=== PATIENT | female | born 1965 | race Asian ===

== ENCOUNTER → 2020-04-25 09:56 | Outpatient (BNVA) | payer OTHER, SELFPAY | PROVIDERS: Visit Provider Internal Medicine | DX: Z76.89 Persons encountering health services in other specified circumstances (principal) ==

== ENCOUNTER → 2020-06-14 07:22 | Outpatient (BNVA) | payer OTHER, SELFPAY | PROVIDERS: PCP Internal Medicine; Visit Provider Internal Medicine ==

== ENCOUNTER 2020-07-10 09:49 | Outpatient (REF) | payer OTHER, SELFPAY ==
--- NOTE | ~2020-07-10 | XR_ITS ---
EXAMINATION: XR CHEST CLINICAL INFORMATION: Cough. COMPARISON: None TECHNIQUE: 2 views of the chest were obtained. FINDINGS: Normal heart size. Stable appearance of the mediastinum, alee and pulmonary vasculature. No focal consolidation. No effusion, edema or pneumothorax. XR/XR chest 2V IMPRESSION: No evidence of acute pulmonary process.
== END 2020-07-10 09:50 | disposition home or self-care (01) ==
LOC: HO.XRAY 09:49
PROVIDERS: PCP Internal Medicine; Visit Provider Internal Medicine
DX: R05 Cough (principal); R06.00 Dyspnea, unspecified; R78.89 Finding of other specified substances, not normally found in blood
CPT/HCPCS: 71046

== ENCOUNTER → 2020-10-29 07:53 | Outpatient (BNVA) | payer OTHER, SELFPAY | PROVIDERS: PCP Internal Medicine; Visit Provider Internal Medicine ==

== ENCOUNTER → 2020-12-27 08:10 | Outpatient (BNVA) | payer OTHER, SELFPAY | PROVIDERS: PCP Internal Medicine; Visit Provider Nurse Practitioner ==

== ENCOUNTER 2021-04-25 07:32 | Day surgery (SDC) | payer OTHER, SELFPAY ==
--- NOTE | 2021-04-25 08:10 | P.CONAN_ITS ---
HPI - Anesthesia Eval Consult details Narrative: 55 Female for colonoscopy [facility] Active Problems Active Problems: All Active Problems (Updated 12/26/20 @ 13:36 by YOANA Gutierrez) GERD (gastroesophageal reflux disease) (Acute) Serrated adenoma of colon (Acute) Recurrent productive cough (Acute) Allergic rhinitis (Acute) Upper respiratory tract infection (Acute) Vitamin D deficiency (Acute) Oswaldo's disease (Acute) Hyperthyroidism (Acute) Past Medical History Medical History Allergic rhinitis H. pylori infection Oswaldo's disease Hyperthyroidism Vitamin D deficiency Functional capacity: independent ambulation Family History Family History Father No problems noted. Mother No problems noted. Family history of problems with anesthesia: No Surgical History Surgical History History of ear surgery Hx of colonoscopy History of Problems with Anesthesia: No Social History Social History Household Members: Other Alcohol intake: never Patient Tobacco Use Status: Never used Tobacco Use of substances other than those prescribed or required for medical reasons: No Are you DNR?: No Advance Directives: No Advance Directives Information Provided: Yes Meds Allergies Allergy/AdvReac Type Severity Reaction Status Date / Time No Known Allergies Allergy Verified 12/27/20 08:12 Home Medications Medication Instructions Recorded Confirmed Last Taken Type cholecalciferol (vitamin D3) 50 50 mcg PO DAILY 04/25/20 10/29/20 Unknown History mcg (2,000 unit) capsule rjlulbeqvho-xdzdcsmrd-fop C-Mn cap PO 04/25/20 10/29/20 Unknown History capsule (Glucosamine-Chondroitin Complx) cqnlhkpa-rngicys-ihto-lutein tablet tab PO DAILY tab 04/25/20 10/29/20 Unknown History Exam Exam Date and Time: April 25, 2021 0810 Airway Mallampati Class: II TM Dist: >3cm Neck ROM: Full Loose/Missing/Broken Teeth: Yes Heart: rrr Lungs: bl breath sounds Assessment and Plan Final Anesthetic Review Family History of Problems with Anesthesia: No History of Problems with Anesthesia: No NPO: Yes ASA Class: II Final Preanesthetic Review: No Changes in Pt Med Stat and Meds/Allgs Chart Reviewed Patient Risk: Intermediate Procedure Risk: Intermediate Anesthetic Plan Anesthetic Plan: MAC: Disposition: Standard PACU
[2021-04-25 08:12] VITALS: BP 121/70; PULSE 72; RESP 16; TEMP 36.9; O2SAT 98; BMI 20.3
[2021-04-25] MEDS: Lactated Ringers 1,000 ML 80 ML IVCONT (08:22)
--- NOTE | 2021-04-25 08:38 | MHC.SHP ---
Pre-Procedural Eval Section A Date of Service: 04/25/21 Section B Chief Complaint: benign neoplasm of colon Relevant Family History (Specify if Yes): No Relevant Social History: None Present Medications: see Short Stay Collaborative assessment Medical History: Significant History (Allergic rhinitis H. pylori infection Oswaldo's disease Hyperthyroidism Vitamin D deficiency) History of Previous Operations: Relevant previous surgery/procedure and date(s) (ear surgery) Allergies: Allergies Allergy/AdvReac Type Severity Reaction Status Date / Time No Known Allergies Allergy Verified 12/27/20 08:12 Review of Systems Sugical H&P ROS: Negative: Constitution, Cardiovascular, Respiratory, Neurological, Psychiatric, Hem-Onc, Allergic/Immunologic, Gastrointestinal, Genitourinary, Musculoskeletal, Integumentary, Endocrine and Eyes/Ears/Nose/Throat Exam Surgical H&P Exam: Normal: HEENT, Normal: Heart, Normal: Lungs, Normal: Extremities, Normal: Abdomen, Normal: Skin and Normal: Neurological Plan Diagnosis/Plan: Unchanged I have reviewed the history and physical and performed a pertinent physical examination on my patient. No changes have occurred unless specified.
--- NOTE | 2021-04-25 08:47 | P.BOP_ITS ---
Brief Operative Note Date of Service: 04/25/21 Pre-op diagnosis: colon screening Post-op diagnosis: same Procedure: see op note Surgeon: Alicia Fernandez MD Anesthesia: MAC Was an Vice President Of Marketing used for this Procedure?: No Estimated blood loss (mL): 0 Condition: stable Disposition: PACU
--- NOTE | 2021-04-25 08:48 | W.PM.OPN ---
Operative Note Operative Note Date of Service: 04/25/21 Narrative: Operative Information Procedure Description: Colonoscopy COLONOSCOPY Instrument: Olympus variable stiffness pediatric scope 190L Colonoscopy Monitoring: Vital signs and clinical assessment, continuous EKG monitoring, Pulse oximetry, Carbon Dioxide monitoring and blood pressure monitoring were done throughout the procedure. Colon withdrawal time was 8 minutes. Procedure: The patient was placed in the left lateral decubitis position and pre-procedure medications were administered. After a digital rectal examination of the ano-rectum, the video colonoscope was inserted into the rectum and advanced through the colon to the cecum/TI. The colonoscope was slowly withdrawn in a retrograde panoramic fashion and the colon mucosa was carefully examined including a retroflexed view of the rectum. Findings and interventions are described below. Procedure Difficulty:easy Findings: Terminal Ileum-normal Cecum: 5-6 mm sessile polyp removed with forceps Ascending Colon: normal Transverse Colon -normal Descending Colon:normal Sigmoid Colon: mild diverticulosis with several tics seen Rectum: Retroflexion with small internal hemorrhoids, grade I Anorectum - normal Colon preparation: [place] Bowel Preparation Scale Right colon; 3 Transverse colon: 3 Left colon; 3 (0 = Unprepared colon segment with mucosa not seen due to solid stool that cannot be cleared. 1 = Portion of mucosa of the colon segment seen, but other areas of the colon segment not well seen due to staining, residual stool and/or opaque liquid. 2 = Minor amount of residual staining, small fragments of stool and/or opaque liquid, but mucosa of colon segment seen well. 3 = Entire mucosa of colon segment seen well with no residual staining, small fragments of stool or opaque liquid) Impression and Post Procedure Diagnosis: polyp internal hemorrhoids diverticular disease Plan: High fiber diet leaflet Avoid straining at stool, epsom salts and sitz bath, anusol supps or cream Repeat Colonoscopy in 5 years if adenoma or serrated polyp otherwise 10 yrs or earlier if clinically indicated Above findings were reviewed with the patient and relevant handouts were provided if indicated.
[2021-04-25 09:11] VITALS: BP 80/46; PULSE 68; RESP 14; TEMP 36.7; O2SAT 100
[2021-04-25 09:25] VITALS: BP 83/48; PULSE 61; RESP 14; O2SAT 100
[2021-04-25 09:30] VITALS: BP 92/57
[2021-04-25 09:40] VITALS: BP 117/69; PULSE 74; RESP 16; O2SAT 98
[2021-04-25 09:53] VITALS: TEMP 36.9
== END 2021-04-25 10:22 | disposition home or self-care (01) ==
PROVIDERS: PCP Nurse Practitioner Family; Visit Provider Internal Medicine Gastroenterology
PROC: 0DJD8ZZ Inspection of Lower Intestinal Tract, Via Natural or Artificial Opening Endoscopic (ICD-10-PCS; CPT 45378; principal; 2021-04-25 08:30)
DX: Z12.11 Encounter for screening for malignant neoplasm of colon (principal); Z86.010 Personal history of colon polyps; D12.0 Benign neoplasm of cecum; K57.30 Diverticulosis of large intestine without perforation or abscess without bleeding; K64.0 First degree hemorrhoids; E06.3 Autoimmune thyroiditis; K21.9 Gastro-esophageal reflux disease without esophagitis
CPT/HCPCS: 45380; 88305

== ENCOUNTER 2021-05-01 10:03 | Outpatient (REF) | payer OTHER, SELFPAY ==
[2021-05-01 10:18] LABS: MANUAL DIFF FLAG NO
[2021-05-01 10:26] LABS: Basophils Percent Auto 0.7 % (0-2); Eosinophils Absolute Auto 0.2 X10*3/uL (0.0-0.4); Hematocrit 43.7 % (37.0-47.0); Hemoglobin 13.9 g/dl (12.0-16.0); Lymphocytes Absolute Auto 2.1 X10*3/uL (1.2-4.9); Lymphocytes Percent Auto 51.6 % (20-40); Mean Corpuscular HGB Conc 31.8 g/dl (31.0-35.0); Mean Corpuscular Hemoglobin 28.8 pg (27.0-33.0); Mean Corpuscular Volume 90.5 fL (80.0-98.0); Mean Platelet Volume 8.6 fL (9.4-12.3); Monocytes Absolute Auto 0.3 X10*3/uL (0.1-1.2); Monocytes Percent Auto 7.5 % (2-11); Neutrophils Absolute Auto 1.5 x10*3/uL (2.0-8.3); Neutrophils Percent Auto 36.2 % (45-73); Platelet Count 209 X10*3/uL (160-400); Red Blood Count 4.83 X10*6/uL (4.20-5.50); Red Cell Distribution Width 12.1 % (11.0-16.0)
[2021-05-01 11:03] LABS: Alanine Aminotransferase 27 U/L (0-31); Albumin Level 4.4 g/dL (3.5-5.0); Alkaline Phosphatase 63 U/L (39-117); Anion Gap 12 (12-20); Aspartate Amino Transferase 29 U/L (5-31); Bilirubin Total 0.6 mg/dL (0.0-1.0); Blood Urea Nitrogen 10 mg/dL (9-16); Calcium 9.5 mg/dL (8.4-10.2); Carbon Dioxide 32 mmol/L (22-29); Chloride 102 mmol/L (96-108); Estimated Glomerular Filt Rate > 60; Glucose Random 102 mg/dL (60-115); Potassium 4.7 mmol/L (3.3-5.1); Sodium 141 mmol/L (135-145); Total Protein 7.2 g/dL (6.5-8.0)
[2021-05-01 11:17] LABS: Free T4 (Free Thyroxine) 0.96 ng/dL (0.71-1.85); Vitamin D 25-OH Total 33.6 ng/mL (>30)
== END 2021-05-01 10:04 | disposition home or self-care (01) ==
LOC: HO.LAB 10:03
PROVIDERS: Internal Medicine; Visit Provider Nurse Practitioner
DX: E06.3 Autoimmune thyroiditis (principal); D12.6 Benign neoplasm of colon, unspecified; E55.9 Vitamin D deficiency, unspecified
CPT/HCPCS: 36415; 80053; 82306; 84439; 84443; 85025

== ENCOUNTER → 2021-05-23 08:39 | Outpatient (BNVA) | payer OTHER, SELFPAY | PROVIDERS: PCP Nurse Practitioner Family; Visit Provider Nurse Practitioner | DX: K21.9 Gastro-esophageal reflux disease without esophagitis (principal); D12.6 Benign neoplasm of colon, unspecified | CPT/HCPCS: 99212 ==

== ENCOUNTER → 2022-07-16 10:44 | Outpatient (BNVA) | payer OTHER, SELFPAY | PROVIDERS: PCP Nurse Practitioner Family; Visit Provider Internal Medicine | DX: Z13.89 Encounter for screening for other disorder (principal) ==

== ENCOUNTER 2022-07-30 11:05 | Outpatient (REF) | payer OTHER, SELFPAY ==
[2022-07-30 14:23] LABS: Free T4 (Free Thyroxine) 1.14 ng/dL (0.71-1.85); Thyroid Stimulating Hormone 0.01 uIU/mL (0.32-4.0); Vitamin D 25-OH Total 32.2 ng/mL (>30)
[2022-07-31 18:58] LABS: Triiodothyronine T3 Total 128 ng/dL (76-181)
== END 2022-07-30 11:06 | disposition home or self-care (01) ==
LOC: HO.10HDL 11:05
PROVIDERS: Visit Provider Internal Medicine
DX: E05.90 Thyrotoxicosis, unspecified without thyrotoxic crisis or storm (principal); E55.9 Vitamin D deficiency, unspecified
CPT/HCPCS: 36415; 82306; 84439; 84443; 84480

== ENCOUNTER 2022-08-13 13:00 | Outpatient (REF) | payer OTHER, SELFPAY ==
[2022-08-15 13:04] LABS: Thyroglobulin Antibodies 385 IU/mL (< or = 1); Thyroid Peroxidase Antibodies >900 IU/mL (<9)
[2022-08-19 15:18] LABS: Thyroid Stimulating Immunoglob 361 % baseline (<140)
[2022-08-19 16:33] LABS: Thyrotropin Receptor Antibody 1.43 IU/L (<=2.00)
== END 2022-08-13 13:01 | disposition home or self-care (01) ==
LOC: HO.LAB 13:00
PROVIDERS: PCP Nurse Practitioner Family; Visit Provider Internal Medicine
DX: E05.90 Thyrotoxicosis, unspecified without thyrotoxic crisis or storm (principal); J06.9 Acute upper respiratory infection, unspecified; Z79.899 Other long term (current) drug therapy
CPT/HCPCS: 36415; 83520; 84445; 86376; 86800; 99212

== ENCOUNTER → 2022-11-20 09:12 | Outpatient (REF) | payer MEDICAID, SELFPAY ==
--- NOTE | ~2022-11-20 | NM_ITS ---
EXAMINATION: NM THYROID UPTAKE AND SCAN CLINICAL INFORMATION: Thyrotoxicosis. TSH 0.01. COMPARISON: No previous radionuclide thyroid scan is available for comparison. Thyroid ultrasound dated 05/04/2019 is available for comparison. TECHNIQUE: Following the oral administration of 297 microcuries of I-123 sodium iodide, thyroid uptake was performed and expressed as a percentage of the administrated dose. Gamma scintillation camera images of the thyroid in the anterior and right and left anterior oblique views were obtained using a pinhole collimator following the administration of 10 mCi Tc-99m pertechnetate. FINDINGS: The uptake is 17.8% at 4 hours and 33.5% at 24 hours (Normal radioiodine uptake at 24 hours is 10% to 30%). The radioiodine uptake is mildly elevated. The radiopertechnetate thyroid scintigram demonstrates the thyroid gland to be normal in size, shape, and position. The right lobe is slightly larger than the left. There is homogeneous distribution of activity within the the gland with no focal abnormalities noted. A faint pyramidal lobe in the midline is just barely visualized. The trapping function appears mildly increased diffusely. A single anterior radioiodine image obtained at the time of the 24-hour uptake measurement is similar to the radio pertechnetate image. NM/NM thyroid w uptake IMPRESSION: Mildly elevated radioiodine uptake. Normal thyroid scan. In the clinical setting of hyperthyroidism and suppressed TSH, these findings are most consistent with Graves' disease. No nodules are visualized.
== END ==
LOC: HO.NUCMED 09:12
PROVIDERS: PCP Nurse Practitioner Family; Visit Provider Internal Medicine
DX: E05.90 Thyrotoxicosis, unspecified without thyrotoxic crisis or storm (principal)
CPT/HCPCS: 78014; A9512; A9516

== ENCOUNTER 2022-11-26 14:18 | Outpatient (REF) | payer MEDICAID, SELFPAY ==
[2022-11-26 16:25] LABS: Free T4 (Free Thyroxine) 1.02 ng/dL (0.71-1.85); Thyroid Stimulating Hormone 0.02 uIU/mL (0.32-4.0)
[2022-11-28 17:48] LABS: Triiodothyronine T3 Total 97 ng/dL (76-181)
== END 2022-11-26 14:19 | disposition home or self-care (01) ==
LOC: HO.LAB 14:18
PROVIDERS: PCP Nurse Practitioner Family; Visit Provider Internal Medicine
DX: E05.90 Thyrotoxicosis, unspecified without thyrotoxic crisis or storm (principal)
CPT/HCPCS: 36415; 84439; 84443; 84480

== ENCOUNTER 2022-12-03 09:10 | Outpatient (AMB) | payer MEDICAID, SELFPAY ==
--- NOTE | 2022-12-03 09:10 | MHC.OFFVIS ---
Intake Intake Visit Reasons: hyperthyroidism Intake Note: pt is here for f/u hyperthyroidism Medical Accounting Clerk Required: No Allergies No Known Allergies Allergy (Verified 12/03/22 10:52) Medication List - Last Reconciled 12/03/22 by Valentina Raymond, benzonatate 100 mg PO TID PRN cetirizine 10 mg PO DAILY 30 days cholecalciferol (vitamin D3) 50 mcg PO DAILY diphenhydramine HCl (Banophen) 50 mg PO BEDTIME PRN famotidine 40 mg PO DAILY fluticasone propionate 50 mcg/actuation 2 sprays intranasal DAILY 30 days xajgaapdewu-rtitfqkaq-slu C-Mn (Glucosamine-Chondroitin Complex capsule) caps PO guaifenesin ER 600 mg PO Q12H PRN 30 days loratadine 10 mg PO DAILY PRN 30 days axanpfhr-gqdevyq-jmgm-lutein tabs PO DAILY HPI HPI Comments History of Present Illness Details 57 YO Female with PMHx Hyperthyroidism who is seen in F/U for hyperthyroidism. She was previously followed by a family doctor in [facility], and was diagnosed with hyperthyroidism and started on Methimazole 5 mg PO every other day. She remained on that for 6 years. She reports never having a thyroid uptake and scan, but was placed on Methimazole many years ago at a much higher dose. Her dose was slowly tapered. After our initial visit I asked her to stop the methimazole entirely and her TFTs were repeated 6 weeks later. These remained completely WNL. She also underwent at Thyroid US which revealed no nodules. Labs did show positive TG and TPO antibodies, but TRAB and TSI were negative. She then had labs repeated with TSH again suppressed. TPO, TG and TSI antibodies all were positive. TRAB antibodies negative. She underwent a thyroid uptake and scan which revealed 24 hour uptake mildly increased at 33.5%, and mildly increased trapping. Uptake was homogenous and symmetric. She currently denies any symptoms of hyper or hypothyroidism. Reports feeling well. She denies using biotin. Thyroid US: 05/04/2019 Right Thyroid Lobe: 5.0 x 1.2 x 1.8 cm, volume 5.6 mL. Parenchyma: The gland echotexture is homogeneous. Thyroid vascularity is normal. Left Thyroid Lobe: 4.5 x 1.0 x 1.7 cm, volume 4.0 mL. Parenchyma: The gland echotexture is homogeneous. Thyroid vascularity is normal. Isthmus: 0.1 cm in maximum AP dimension. RIGHT THYROID LOBE: No nodules. ISTHMUS: No nodules. LEFT THYROID LOBE: No nodules. NODES: There is a small right cervical lymph node lateral to the thyroid gland. This is normal in size measuring 0.5 cm in transverse dimension. This demonstrates normal ultrasound morphology and flow. Thyroid Uptake and Scan: 11/21/2022 FINDINGS: The uptake is 17.8% at 4 hours and 33.5% at 24 hours (Normal radioiodine uptake at 24 hours is 10% to 30%). The radioiodine uptake is mildly elevated. The radiopertechnetate thyroid scintigram demonstrates the thyroid gland to be normal in size, shape, and position. The right lobe is slightly larger than the left. There is homogeneous distribution of activity within the the gland with no focal abnormalities noted. A faint pyramidal lobe in the midline is just barely visualized. The trapping function appears mildly increased diffusely. A single anterior radioiodine image obtained at the time of the 24-hour uptake measurement is similar to the radio pertechnetate image. NM/NM thyroid w uptake IMPRESSION: Mildly elevated radioiodine uptake. Normal thyroid scan. In the clinical setting of hyperthyroidism and suppressed TSH, these findings are most consistent with Graves' disease. No nodules are visualized. Labs: Laboratory Tests 08/13/22 11/26/22 11/26/22 13:45 14:39 14:39 TSH 0.02 L Free T4 1.02 Total T3 97 Thyroid Stim Immun oglob 361 H Thyroglobulin Anti body 385 H Thyroid Peroxidase Ab >900 H TSH Receptor Ab 1.43 PFSH Medical History Allergic rhinitis H. pylori infection Oswaldo's disease Hyperthyroidism Vitamin D deficiency Surgical History History of ear surgery Hx of colonoscopy Family History Father No problems noted. Mother No problems noted. Social History Household Members: Other Alcohol intake: never Patient Tobacco Use Status: Never used Tobacco Assessment & Plan Assessment & Plan (1) Hyperthyroidism: Code(s): E05.90 - Thyrotoxicosis, unspecified without thyrotoxic crisis or storm Plan: Patient with recurrent hyperthyroidism. Appears consistent with Grave's disease. She has both blocking and stimulating antibodies. Will resume Methimazole 5 mg PO daily and repeat labs in 2 weeks and again in 6 weeks time. She will then F/U for an in person discussion with an historian research assistant regarding dinfitive treatment with either I131 ablation or a total thyroidectomy as this is indicated at this time. We have reviewed potential ADRs and toxicities of rash, liver failure and agranulocytosis. I advised the patient to immediatley discontinue the medication and call me if a rash appears, symptoms of URI, fever, RUQ pain, Jaundice or darkening of the urine. Patient verbalized understanding. All of her questions were answered. She is in agreement with this plan of care. I spent 20 minutes in reviewing the record, seeing the patient and documenting in the medical record, including 5 minutes on the phone with the Patient. Orders: Orders Triiodothyronine T3 Total 2 Weeks E05.90 - Thyrotoxicosis, unspecified without thyrotoxic crisis or storm Free T4 (Free Thyroxine) 2 Weeks E05.90 - Thyrotoxicosis, unspecified without thyrotoxic crisis or storm Thyroid Stimulating Hormone 6 Weeks E05.90 - Thyrotoxicosis, unspecified without thyrotoxic crisis or storm Triiodothyronine T3 Total 6 Weeks E05.90 - Thyrotoxicosis, unspecified without thyrotoxic crisis or storm Free T4 (Free Thyroxine) 6 Weeks E05.90 - Thyrotoxicosis, unspecified without thyrotoxic crisis or storm Medications: New methimazole 5 mg PO DAILY 30 days 30 tabs 4RF Telehealth Telehealth Location of provider rendering services: practice address Location of patient: address on file Patient Identification confirmed using: Name, : Yes Telehealth method: voice only Patient verbally consented to treatment: Yes Patient verbally consented to billing insurance company: Yes Patient informed of any privacy concerns related to visit: Yes Coding Level of Care Code Tele Est Pt Level 3 (54826) Diagnoses Hyperthyroidism E05.90
== END 2022-12-03 13:40 | disposition home or self-care (01) ==
LOC: HO.ENCR 09:10
PROVIDERS: PCP Nurse Practitioner Family; Visit Provider Internal Medicine
DX: E05.90 Thyrotoxicosis, unspecified without thyrotoxic crisis or storm (principal)
CPT/HCPCS: 99213

== ENCOUNTER → 2022-12-03 09:10 | Outpatient (BNVA) | payer MEDICAID, SELFPAY | PROVIDERS: PCP Nurse Practitioner Family; Visit Provider Internal Medicine ==

== ENCOUNTER 2022-12-08 13:54 | Outpatient (REF) | payer MEDICAID, SELFPAY ==
[2022-12-08 15:20] LABS: Free T4 (Free Thyroxine) 0.91 ng/dL (0.71-1.85)
[2022-12-09 20:14] LABS: Triiodothyronine T3 Total 103 ng/dL (76-181)
== END 2022-12-08 13:55 | disposition home or self-care (01) ==
LOC: HO.LAB 13:54
PROVIDERS: PCP Nurse Practitioner Family; Visit Provider Internal Medicine
DX: E05.90 Thyrotoxicosis, unspecified without thyrotoxic crisis or storm (principal)
CPT/HCPCS: 36415; 84439; 84480

== ENCOUNTER 2023-03-12 08:58 | Outpatient (REF) | payer MEDICAID, SELFPAY ==
[2023-03-12 11:31] LABS: Free T4 (Free Thyroxine) 0.97 ng/dL (0.71-1.85); Thyroid Stimulating Hormone 2.12 uIU/mL (0.32-4.0)
[2023-03-13 09:59] LABS: Triiodothyronine T3 Total 105 ng/dL (76-181)
== END 2023-03-12 08:59 | disposition home or self-care (01) ==
LOC: HO.10HDL 08:58
PROVIDERS: Visit Provider Internal Medicine
DX: E05.90 Thyrotoxicosis, unspecified without thyrotoxic crisis or storm (principal)
CPT/HCPCS: 36415; 84439; 84443; 84480

== ENCOUNTER 2023-03-17 10:01 | Outpatient (AMB) | payer MEDICAID, SELFPAY ==
--- NOTE | 2023-03-17 10:03 | MHC.OFFVIS ---
Intake Vital Signs 03/17/23 10:04 Height 5 ft 2 in Weight 124 lb 12.506 oz BMI 22.8 BP 124/68 Blood Pressure Location Lt brachial Position Sitting Pulse 98 Pulse Source Pulse Oximeter Intake Visit Reasons: hyperthyroidism/Confirmed Intake Note: New patient to Dr. Zamudio present today for Hyperthyroidism follow up visit. Previously followed by Dr. Roth. Pizza Delivery Driver Required: No Accompanied by: Self / Same As Patient Allergies No Known Allergies Allergy (Verified 03/17/23 10:14) HPI HPI Comments History of Present Illness Details 57 YO Female with PMHx Hyperthyroidism who is seen in F/U for hyperthyroidism.. Patient last saw Dr. Roth on 12/03/2022 She was previously followed by a family doctor in [facility], and was diagnosed with hyperthyroidism and started on Methimazole 5 mg PO every other day. She remained on that for 6 years. She reports never having a thyroid uptake and scan, but was placed on Methimazole many years ago at a much higher dose. Her dose was slowly tapered. After our initial visit I asked her to stop the methimazole entirely and her TFTs were repeated 6 weeks later. These remained completely WNL. She also underwent at Thyroid US which revealed no nodules. Labs did show positive TG and TPO antibodies, but TRAB and TSI were negative. She then had labs repeated with TSH again suppressed. TPO, TG and TSI antibodies all were positive. TRAB antibodies negative. She underwent a thyroid uptake and scan which revealed 24 hour uptake mildly increased at 33.5%, and mildly increased trapping. Uptake was homogenous and symmetric. She currently denies any symptoms of hyper or hypothyroidism. Reports feeling well. She denies using biotin. Thyroid US: 05/04/2019 Right Thyroid Lobe: 5.0 x 1.2 x 1.8 cm, volume 5.6 mL. Parenchyma: The gland echotexture is homogeneous. Thyroid vascularity is normal. Left Thyroid Lobe: 4.5 x 1.0 x 1.7 cm, volume 4.0 mL. Parenchyma: The gland echotexture is homogeneous. Thyroid vascularity is normal. Isthmus: 0.1 cm in maximum AP dimension. RIGHT THYROID LOBE: No nodules. ISTHMUS: No nodules. LEFT THYROID LOBE: No nodules. NODES: There is a small right cervical lymph node lateral to the thyroid gland. This is normal in size measuring 0.5 cm in transverse dimension. This demonstrates normal ultrasound morphology and flow. Thyroid Uptake and Scan: 11/21/2022 FINDINGS: The uptake is 17.8% at 4 hours and 33.5% at 24 hours (Normal radioiodine uptake at 24 hours is 10% to 30%). The radioiodine uptake is mildly elevated. The radiopertechnetate thyroid scintigram demonstrates the thyroid gland to be normal in size, shape, and position. The right lobe is slightly larger than the left. There is homogeneous distribution of activity within the the gland with no focal abnormalities noted. A faint pyramidal lobe in the midline is just barely visualized. The trapping function appears mildly increased diffusely. A single anterior radioiodine image obtained at the time of the 24-hour uptake measurement is similar to the radio pertechnetate image. NM/NM thyroid w uptake IMPRESSION: Mildly elevated radioiodine uptake. Normal thyroid scan. In the clinical setting of hyperthyroidism and suppressed TSH, these findings are most consistent with Graves' disease. No nodules are visualized. Labs: Laboratory Tests 08/13/22 11/26/22 11/26/22 13:45 14:39 14:39 TSH 0.02 L Free T4 1.02 Total T3 97 Thyroid Stim Immun oglob 361 H Thyroglobulin Anti body 385 H Thyroid Peroxidase Ab >900 H TSH Receptor Ab 1.43 Not taking methimazole because had headaches on methimazole [facility] Medical History Allergic rhinitis H. pylori infection Oswaldo's disease Hyperthyroidism Vitamin D deficiency Surgical History History of ear surgery Hx of colonoscopy Family History Father No problems noted. Mother No problems noted. Social History Household Members: Other Alcohol intake: never Patient Tobacco Use Status: Never used Tobacco Physical Exam Vital Signs: Last Vital Signs Pulse 98 03/17/23 10:04 BP 124/68 03/17/23 10:04 BMI result Body Mass Index 22.8 Const Other: Thyroid gland is normal size weighs about 15 g. There are no thyroid nodules palpated Assessment & Plan Assessment & Plan (1) Hyperthyroidism: Code(s): E05.90 - Thyrotoxicosis, unspecified without thyrotoxic crisis or storm Plan: This is a 57-year-old [place] female with history of Graves disease and hyperthyroidism off methimazole appears to be remission and clinically and biochemically euthyroid At this point, patient returned to the care of her primary care provider and to report any symptoms of hyperthyroidism or hypothyroidism to have a TSH checked. I did explain to patient that she is at high risk for recurrence or development of hypothyroidism considering positive antibodies for Oswaldo's disease. If she does experience a recurrence, she returned back to endocrinology . If she develops hypothyroidism due to elevation of TSH in future, her primary care provider can initiate 75 mcg levothyroxine to normalize TSH working returned back to endocrine Coding Level of Care Code Est Pt Level 3 (03895) Diagnoses Hyperthyroidism E05.90
[2023-03-17 10:04] VITALS: BP 124/68; PULSE 98; BMI 22.8
== END 2023-03-17 11:06 | disposition home or self-care (01) ==
PROVIDERS: PCP Nurse Practitioner Family; Visit Provider Internal Medicine Endocrinology, Diabetes & Metabolism
DX: E05.90 Thyrotoxicosis, unspecified without thyrotoxic crisis or storm (principal)
CPT/HCPCS: 99213

== ENCOUNTER → 2023-03-17 10:01 | Outpatient (BNVA) | payer MEDICAID, SELFPAY | PROVIDERS: PCP Nurse Practitioner Family; Visit Provider Internal Medicine Endocrinology, Diabetes & Metabolism | DX: E05.90 Thyrotoxicosis, unspecified without thyrotoxic crisis or storm (principal) | CPT/HCPCS: 99212 ==